=== PATIENT | female | born 1960 | race Hispanic/Latino ===

== ENCOUNTER 2021-09-17 15:56 | Emergency (ER) | payer SELFPAY ==
[~2021-09-17] VITALS: Ht 157.5 cm; Wt 68.0 kg
== END 2021-09-17 17:00 | disposition home or self-care (01) ==
LOC: ER 16:35
DX: R10.32 Left lower quadrant pain (principal); X50.0XXA Overexertion from strenuous movement or load, initial encounter
CPT/HCPCS: 99282